=== PATIENT | female | born 1955 | race Caucasian/White ===

== ENCOUNTER 2018-01-16 00:07 | Inpatient (IN) | payer BC ==
--- NOTE | 2018-01-15 12:11 | HISTORY AND PHYSICAL ---
DATE OF ADMISSION: January 16, 2018 IDENTIFICATION, CHIEF COMPLAINT Jovanna is a 61-year-old woman with a chief complaint of left hip pain. HISTORY OF PRESENT ILLNESS Patient has a longstanding history of hip arthritis, progressively painful and debilitating, refractory to conservative care. Surgery is indicated to relieve symptoms after failure of nonoperative measures. PAST MEDICAL HISTORY Notable for history of heart disease status post MD, hypertension, migraine headaches, type 2 diabetes controlled with diet, acid reflux disease, neck and back arthritis, history of uterine cancer. PAST SURGICAL HISTORY Notable for stomach bypass, cholecystectomy, hysterectomy, treatment of bladder prolapse. FAMILY HISTORY Notable for mother with heart disease. SOCIAL HISTORY Notable for a 20 pack/year history, however, she no longer smokes. She denies alcohol use or abuse. ALLERGIES TAPE, which causes blisters. CURRENT MEDICATIONS 1. Mobic 15 mg per day. 2. Lisinopril 20 mg p.o. q.day. 3. Hydrocodone for pain. 4. Various vitamins. PHYSICAL EXAMINATION GENERAL: This is a healthy female. HEENT: She is normocephalic, atraumatic. NECK: Supple. LUNGS: Clear. HEART: Regular. ABDOMEN: Soft. ORTHOPEDIC EXAM: Hip is very painful at limits of rotation. She is stiff and has lost combined flexion and internal rotation. Hip girdle strength is normal. Skin envelope is intact. Calves nontender. Neurovascular function is intact. RADIOGRAPHIC DATA Radiographs demonstrate end-stage hip arthritis. ASSESSMENT Left hip degenerative joint disease, refractory to conservative care. PLAN Per patient request, we are going to proceed with hip replacement. Nature of the procedure, risks, benefits, the anticipated rehabilitative course were reviewed. Risks of the procedure include, but are not limited to, , major medical or anesthetic complication, infection, neurovascular injury, blood transfusion, stiffness, scarring, fracture, tendon rupture, instability, leg length discrepancy, implant loosening, migration or failure, persistent or recurrent pain, need for additional surgery, and other unforeseen. She understands and wishes to proceed. Signed permit was placed in the chart, no guarantees are given or implied. JANELLE
[2018-01-16] VITALS (12 sets, daily range): BP systolic 99–145; BP diastolic 58–82
[~2018-01-16] VITALS: Ht 154.9 cm; Wt 93.0 kg
[~2018-01-16 00:07] MED LIST: HYDR-393 PO; LISI20TA29 PO; MELO-207 PO; TRAM-420 PO
[2018-01-16] MEDS ORDERED: PROPOFOL EMUL(*) 10MG/ML 20 ML 20 ML ONE (07:49)
[2018-01-16] MEDS ORDERED: DEXAMETHASONE SOD PHOS 10MG/ML ONE (07:49)
[2018-01-16] MEDS ORDERED: LIDOCAINE MPF 1% 5 ML VIAL ONE (07:49)
[2018-01-16] MEDS ORDERED: ONDANSETRON 4 MG/2 ML VIAL ONE (07:49)
[2018-01-16] MEDS ORDERED: fentaNYL CITR 100 MCG/2 ML AMP ONE ×3 (07:51→12:39)
[2018-01-16] MEDS ORDERED: KETAMINE HCL 200 MG/20 ML MDV ONE (07:52)
[2018-01-16] MEDS ORDERED: NS 0.9% 20 ML SDV 20 ML ONE (08:10)
[2018-01-16] MEDS ORDERED: CELECOXIB 200 MG CAP PO ONE (08:50)
[2018-01-16] MEDS ORDERED: ACETAMINOPHEN 500 MG TAB PO ONE (08:50)
[2018-01-16] MEDS ORDERED: cloNIDine EPIDUR INJ 100MCG/ML 40 MCG, ROPIVACAINE 0.5% 20 ML VIAL 25 ML, EPINEPHrine H... INJ ONE (08:50)
[2018-01-16] MEDS ORDERED: FAMOTIDINE 20 MG TAB PO ONE (08:50)
[2018-01-16] MEDS ORDERED: PREGABALIN 150 MG CAPSULE PO ONE (08:50)
[2018-01-16] MEDS ORDERED: LIDOCAINE/SOD BICARB 8.4% SYR ID ONE (08:50)
[2018-01-16] MEDS ORDERED: NORMOSOL R SOLN(*) 1000 ML BAG 1,000 ML IV PRN ×2 (08:50→13:00)
[2018-01-16] MEDS ORDERED: MIDAZOLAM 2 MG/2 ML VIAL IVP PRN (08:50)
[2018-01-16] MEDS ORDERED: TRANEXAMIC AC 1000 MG/10ML SDV 1,000 MG in DEXTROSE 5% 50 ML BAG 50 ML IV ONE (08:50)
[2018-01-16] MEDS: ceFAZolin(*) 2GM/D5W 50ML 50 ML IVPB ONE ×2 (09:52→10:15)
[2018-01-16] MEDS ORDERED: ROCURONIUM BROM 10 MG/ML 10 ML ONE (10:15)
[2018-01-16] MEDS ORDERED: SUGAMMADEX SOD 200 MG/2 ML SDV ONE (11:18)
[2018-01-16] MEDS ORDERED: VANCOMYCIN 1 GM VIAL ONE (11:36)
[2018-01-16] MEDS ORDERED: BISACODYL 10 MG SUPP PR PRN (13:00)
[2018-01-16] MEDS ORDERED: diphenhydrAMINE 50 MG/ML VIAL IVP PRN (13:00)
[2018-01-16] MEDS ORDERED: BENZOCAINE/MENTHOL 1 EACH LOZG PO PRN (13:00)
[2018-01-16] MEDS ORDERED: ACETAMINOPHEN 325 MG TAB PO PRN (13:00)
[2018-01-16] MEDS ORDERED: ZOLPIDEM TARTRATE 5 MG TAB PO PRN (13:00)
[2018-01-16] MEDS ORDERED: MAGNESIUM HYDROXIDE* 30ML UDCP PO PRN (13:00)
[2018-01-16] MEDS ORDERED: diphenhydrAMINE 25 MG CAP PO PRN (13:00)
[2018-01-16] MEDS ORDERED: FLUSH 10 ML SYR IVP PRN (13:00)
[2018-01-16] MEDS ORDERED: PROMETHAZINE 25 MG/ML 1 ML AMP IVP PRN (13:00)
--- NOTE | 2018-01-16 13:19 | RADIOLOGY IMAGING REPORT ---
FACILITY: [facility] PATIENT NAME: Jovanna Braxton : 1955 MR: [id number] V: [id number] EXAM DATE: ORDERING PHYSICIAN: BRAYDON WALKER TECHNOLOGIST: Location: [facility] Patient: Jovanna Braxton : 1955 Visit/Account:[id number] Date of Sevice: 01/16/2018 PELVIS History: Postop left total hip replacement. Comparison study: None. Findings: There is diffuse osteopenia but no fracture. There has been recent placement of left total hip prosthesis. Subcutaneous air is noted on the left side. There are findings of osteoarthrosis involving the right hip. There are degenerative changes involve the sacroiliac joints. IMPRESSION: 1. Status post recent left total hip replacement. 2. Osteopenia without fracture. Report Dictated By: Juan Willis MD at 01/16/2018 1:14 PM Report E-Signed By: Juan Willis MD at 01/16/2018 1:15 PM WSN:[email or web address]
--- NOTE | 2018-01-16 15:31 | Hospitalist Consultation ---
History of Present Illness Requesting Physician Dr. Littlejohn Reason for Consult Hypertension Chief Complaint s/p left total hip replacement History of Present Illness She was admitted s/p left total hip replacement. It is reported the surgery went well and without complication. History Problems: (1) Hypertension Status: Chronic Home Meds Reported Medications Tramadol Hcl (TRAMADOL HCL) 50 Mg Tablet, 50 MG PO TID Y for PAIN, TAB 01/10/18 Acetaminophen/Hydrocodone (HYDROCODON-ACETAMINOPHN 10-325) 1 Each Tab, 1 EACH PO QID, TAB 01/10/18 Lisinopril (LISINOPRIL) 20 Mg Tablet, 20 MG PO QDAY, TAB 01/10/18 Meloxicam (MELOXICAM) 15 Mg Tablet, 15 MG PO QDAY 01/10/18 Allergies: Coded Allergies: adhesive tape (Verified Allergy, Intermediate, CAUSES BLISTERS ON SKIN, 05/20) Patient History: FH: [place] (myocardial infarction) FATHER, FH: heart disease FATHER, Renal cancer MOTHER, Hx Smoking: Yes (2 PPD X 9 YRS QUIT 40 YRS AGO) Smoking Status: Former Smoker Caffeine Intake: Soda Caffeine/Cups Per Day: 1 GLASS DAILY Hx Alcohol Use: No Hx Substance Use Disorder: No Social Drug Use: Never History of IV Drug Use: No Review of Systems All Systems Reviewed/Normal: Yes, Except as Noted Exam Vital Signs Vital Signs Date Time Temp Pulse Resp B/P (MAP) Pulse Ox O2 Delivery O2 Flow Rate FiO2 01/16/18 14:45 78 125/74 (91) 100 Nasal Cannula 1.0 01/16/18 14:30 98.3 16 General Appearance: No Acute Distress Cardiovascular: Regular Rate and Rhythm Respiratory: No Respiratory Distress, Clear to Auscultation Extremities: Perfused Psych: Other (sleeping throughout exam ) Assessment and Plan Problems: (1) Status post total hip replacement, left Status: Acute Assessment & Plan: Followed by Dr. Littlejohn. She will be placed on Aspirin 325 mg daily for DVT prophylaxis. (2) Hypertension Status: Chronic Assessment & Plan: She is on chronic treatment with Lisinopril. This has been restarted with hold parameters. Venous Thromboembolism Antithrombotics Is Pt On Any Antithrombotics?: No Exam Sepsis Risk: No Definite Risk BALDEV CHANDRA BIG 6 DEALER Jan 16, 2018 15:31
[2018-01-16] MEDS: CELECOXIB 200 MG CAP PO SCH (17:29)
[2018-01-16] MEDS: APAP/HYDROCODONE 325/7.5 TAB PO PRN ×2 (17:29→23:45)
[2018-01-16] MEDS: ceFAZolin(*) 1 GM VIAL 1 GM in NS(*) 0.9% 100 ML ADDVANT BAG 100 ML IVPB SCH (17:31)
--- NOTE | 2018-01-16 21:04 | OPERATIVE REPORT 1 ---
EVENT DATE: January 16, 2018 SURGEON: Matt Littlejohn MD ANESTHESIOLOGIST: He Baca MD ANESTHESIA: General plus spinal. SENIOR SERVICE AIDE: LUIS Sousa PREOPERATIVE DIAGNOSIS Left hip degenerative joint disease. POSTOPERATIVE DIAGNOSIS Left hip degenerative joint disease. PROCEDURE PERFORMED Left total hip arthroplasty. ESTIMATED BLOOD LOSS 300 mL DRAINS None. SPECIMENS None. COMPLICATIONS None apparent. IMPLANTS USED [place] system with a 56 Tritanium shell, complimented by Torx 6.5 cancellous bone screws times two and a Trident X3 zero-degree poly insert to accommodate a 36 mm head, SecurFit Max 132-degree neck angled hip stem size 10, and a Biolox Ceramic C-Taper femoral head 36, +7.5. INDICATIONS Jovanna is a 62-year-old woman with intractable pain and disability related to end-stage hip arthritis. Surgery is indicated to relieve symptoms after failure of nonoperative measures. DESCRIPTION OF PROCEDURE Patient was taken to the operating room and placed supine on the operating table. General anesthesia is induced. Spinal block is placed by the anesthesiologist. Patient is positioned in the right lateral decubitus on a well-padded pegboard. Pelvis is secured in a vertical position. All bony prominences and superficial nerves are well padded. Left hip girdle and lower extremity are prepped and draped in the usual sterile fashion for hip arthroplasty. A posterolateral approach made, carried down through the skin and fat to the deep fascia. Fascia is incised over the tip of the trochanter, extended distally in line with the femur, proximally in line with the srinivas fibers. Srinivas fibers are split bluntly. The interval between the abductor and external rotator is identified, and the abductor is protected with a blunt Hohmann. External rotators and the capsule are released posterolaterally with an L capsulotomy/tenotomy. These are tagged with #2 Vicryl for later anatomic reattachment. The femoral head is dislocated. End-stage arthritic change is noted. A 1.5 cm neck cut is made consistent with preoperative templating. Femoral head is extracted. Femur is translocated anteriorly. The socket is blown out, and it is fairly dilated and sclerotic. It carried down very close to the true medial wall of the acetabulum. This is carefully expanded from 44 in 2 mm increments up until reasonable contact is obtained at 56 with all rims. The wound is lavaged, and trial 56 has satisfactory fit. This impacted into position due to the dilated nature of the socket, although there is adequate contact. There is slight retroversion of the thin posterior wall; therefore, two Torx 6.5 screws were placed in the posterosuperior quadrant to engage nice bone in the posterior column. Solid fixation is achieved. Socket is lavaged, and the actual liner is impacted into the socket. Attention is turned to femoral preparation. The superior neck is resected with a cookie cutter. A Ben awl finds the canal. Tapered reaming is performed up to 10 where good endosteal contact is obtained. Broaching starts with 8 and works up to 10. The 10 broach has nice fit and fill, and good voodoo of soft tissue tension and stability are achievable off this stable broach. The broach is extracted. The actual stem is seated and seats at the same height. The +7.5 provides optimal for voodoo of the limb length, stability, and soft tissue tension. Claudio taper is lavaged and dried, and the head is impacted into position. Joint is reduced. Arthrotomy/tenotomy is closed through drill holes with a #2 Vicryl suture. The deep fascia is closed distally with #2 Ethibond, proximally with #2 Vicryl. Subcutaneous tissue is lavaged. Hemostasis is assured. Derm is closed with 3-0 Vicryl, skin with surgical digna, Xeroform and 4 x 4's in a dry, sterile dressing, and a hip wrap. Patient is rolled supine. Abduction pillow is placed. She is awakened from anesthesia and taken to the recovery room in stable condition having tolerated the procedure well. PLAN Plan is for standard [facility] rehab protocol, weightbearing as tolerated, and posterior hip precautions. [facility]
[2018-01-17] MEDS: ceFAZolin(*) 1 GM VIAL 1 GM in NS(*) 0.9% 100 ML ADDVANT BAG 100 ML IVPB SCH ×2 (01:32→09:30)
[2018-01-17 04:14] VITALS: BP 117/56
[2018-01-17] MEDS: DIAZEPAM 5 MG TAB PO PRN (04:22)
[2018-01-17] MEDS: APAP/HYDROCODONE 325/7.5 TAB PO PRN ×3 (07:17→18:04)
[2018-01-17] MEDS: CELECOXIB 200 MG CAP PO SCH ×2 (07:17→18:03)
[2018-01-17 07:27] VITALS: BP 110/52
[2018-01-17] MEDS: LISINOPRIL 20 MG TAB PO SCH ×3 (08:25→09:00)
[2018-01-17] MEDS ORDERED: ASPIRIN 325 MG TAB PO SCH (09:00)
--- NOTE | 2018-01-17 11:31 | Hospitalist Progress Note ---
Subjective Progress Notes Subjective She was admitted s/p hip replacement. She had no acute events overnight. Patient Complains of: Cardiovascular: No: Chest Pain Respiratory: No: Shortness of Breath Physical Exam Vital Signs Date Time Temp Pulse Resp B/P (MAP) Pulse Ox O2 Delivery O2 Flow Rate FiO2 01/17/18 07:31 96 Room Air 01/17/18 07:27 98.4 82 14 110/52 (71) 01/17/18 04:14 1.0 Intake and Output 01/18/18 01:00 Intake Total 1160 ml Balance 1160 ml Intake Oral 960 ml IV Total 200 ml # Voids 1 General Appearance: Alert, Awake, No Acute Distress, Afebrile Neuro: No Gross deficits Cardiovascular: Regular Rate and Rhythm Respiratory: No Respiratory Distress, Clear to Auscultation Psych: Alert & Oriented X3, Appropriate Mood & Affect Assessment and Plan Problems: (1) Status post total hip replacement, left Status: Acute Assessment & Plan: Followed by Dr. Littlejohn. She will be placed on Aspirin 325 mg daily for DVT prophylaxis. (2) Hypertension Status: Chronic Assessment & Plan: She is on chronic treatment with Lisinopril. This has been restarted with hold parameters. Exam Sepsis Risk: No Definite Risk BALDEV CHANDRA BUFFING MACHINE TENDER Jan 17, 2018 11:31
[2018-01-17 13:01] VITALS: Ht 154.9 cm; Wt 93.0 kg
[2018-01-17 20:34] VITALS: BP 104/58
[2018-01-17 23:47] VITALS: BP 114/62
[2018-01-18] MEDS: APAP/HYDROCODONE 325/7.5 TAB PO PRN ×4 (00:56→19:49)
[2018-01-18 05:09] VITALS: BP 118/74
[2018-01-18 08:30] VITALS: BP 111/65
[2018-01-18] MEDS: LISINOPRIL 20 MG TAB PO SCH (08:34)
[2018-01-18] MEDS: CELECOXIB 200 MG CAP PO SCH ×2 (08:34→17:40)
[2018-01-18] MEDS ORDERED: CALCIUM CARBONATE 500 MG CHEW PO PRN (09:05)
[2018-01-18] MEDS: ASPIRIN 81 MG CHEW PO SCH (09:19)
--- NOTE | 2018-01-18 11:26 | Hospitalist Progress Note ---
Subjective Progress Notes Subjective She has no concerns this morning. She had no acute events overnight. Patient Complains of: Cardiovascular: No: Chest Pain Respiratory: No: Shortness of Breath Physical Exam Vital Signs Date Time Temp Pulse Resp B/P (MAP) Pulse Ox O2 Delivery O2 Flow Rate FiO2 01/18/18 05:12 93 01/18/18 05:09 97.9 79 15 118/74 (89) Room Air 01/17/18 04:14 1.0 Intake and Output 01/19/18 00:59 Intake Total 240 ml Balance 240 ml Intake Oral 240 ml # Voids 1 General Appearance: Alert, Awake, No Acute Distress Neuro: No Gross deficits Cardiovascular: Regular Rate and Rhythm Respiratory: No Respiratory Distress, Clear to Auscultation Psych: Alert & Oriented X3, Appropriate Mood & Affect Assessment and Plan Problems: (1) Status post total hip replacement, left Status: Acute Assessment & Plan: Followed by Dr. Littlejohn. She will be placed on Aspirin 325 mg daily for DVT prophylaxis. (2) Hypertension Status: Chronic Assessment & Plan: She is on chronic treatment with Lisinopril. This has been restarted with hold parameters. Exam Sepsis Risk: No Definite Risk BALDEV CHANDRA MUSIC ARTIST Jan 18, 2018 11:26
[2018-01-18 12:22] VITALS: BP 113/60
[2018-01-18 14:52] VITALS: BP 120/60
[2018-01-18 19:39] VITALS: BP 111/58
[2018-01-18 23:21] VITALS: BP 111/60
[2018-01-19] MEDS: DIAZEPAM 5 MG TAB PO PRN (01:11)
[2018-01-19] MEDS: APAP/HYDROCODONE 325/7.5 TAB PO PRN ×3 (02:38→12:51)
[2018-01-19 02:58] VITALS: BP 123/68
[2018-01-19] MEDS: CELECOXIB 200 MG CAP PO SCH (07:37)
[2018-01-19 07:39] VITALS: BP 126/57
[2018-01-19] MEDS ORDERED: DIA5 PO (08:33)
[2018-01-19] MEDS ORDERED: CELE-1 PO (08:34)
[2018-01-19] MEDS ORDERED: HYDR-4308 PO (08:35)
[2018-01-19] MEDS: LISINOPRIL 20 MG TAB PO SCH (08:48)
[2018-01-19] MEDS: ASPIRIN 81 MG CHEW PO SCH (08:48)
[2018-01-19] MEDS ORDERED: ASPI-870 PO (09:01)
--- NOTE | 2018-01-19 10:40 | Hospitalist Progress Note ---
Subjective Progress Notes Subjective She was admitted s/p hip replacement. She had no acute events overnight. She would like to go home today. Patient Complains of: Cardiovascular: No: Chest Pain Respiratory: No: Shortness of Breath Physical Exam Vital Signs Date Time Temp Pulse Resp B/P (MAP) Pulse Ox O2 Delivery O2 Flow Rate FiO2 01/19/18 10:30 Room Air 01/19/18 07:39 93 01/19/18 07:39 98.3 82 20 126/57 (80) Intake and Output 01/20/18 00:59 Intake Total 0 ml Balance 0 ml Intake Oral 0 ml # Voids 1 General Appearance: Alert, Awake, No Acute Distress Neuro: No Gross deficits Cardiovascular: Regular Rate and Rhythm Respiratory: No Respiratory Distress, Clear to Auscultation GI: Soft and Non-Tender Psych: Alert & Oriented X3, Appropriate Mood & Affect Assessment and Plan Problems: (1) Status post total hip replacement, left Status: Acute Assessment & Plan: Followed by Dr. Littlejohn. She was placed on Aspirin 162 mg daily for DVT prophylaxis secondary to gastric bypass. (2) Hypertension Status: Chronic Assessment & Plan: She is on chronic treatment with Lisinopril. Exam Sepsis Risk: No Definite Risk BALDEV CHANDRA COUNTER CLERK TRACTOR PARTS Jan 19, 2018 10:40
== END 2018-01-19 13:05 | disposition home or self-care (01) | DRG 470 ==
LOC: OR 00:07 → MED 14:20
PROVIDERS: ADMIT Orthopaedic Surgery; ATTEND Orthopaedic Surgery
PROC: 0SRB04A Replacement of Left Hip Joint with Ceramic on Polyethylene Synthetic Substitute, Uncemented, Open Approach (ICD-10-PCS; principal; 2018-01-16 09:50)
DX: M16.12 Unilateral primary osteoarthritis, left hip (principal); I10 Essential (primary) hypertension; E11.9 Type 2 diabetes mellitus without complications; E66.01 Morbid (severe) obesity due to excess calories; K21.9 Gastro-esophageal reflux disease without esophagitis; Z85.42 Personal history of malignant neoplasm of other parts of uterus; I25.2 Old myocardial infarction; Z98.84 Bariatric surgery status; Z90.49 Acquired absence of other specified parts of digestive tract; Z90.710 Acquired absence of both cervix and uterus; Z87.891 Personal history of nicotine dependence; Z68.38 Body mass index [BMI] 38.0-38.9, adult
CPT/HCPCS: 36415; 72170; 85610; 86850; 86900; 86901; 97161; 97165; C1713; C1776; J0171; J0690; J0735; J1100; J1885; J2001; J2250; J2405; J2704; J2795; J3010; J3370; J3490; J7050; J7060; Q0163

== ENCOUNTER 2018-11-20 00:21 | Inpatient (IN) | payer BC ==
[2018-01-17 13:01] VITALS: Ht 154.9 cm; Wt 93.9 kg
[2018-11-19 14:22] LABS: INR 1.01
[2018-11-20] VITALS (14 sets, daily range): BP systolic 64–145; BP diastolic 40–80
[~2018-11-20] VITALS: Ht 154.9 cm; Wt 93.9 kg
[~2018-11-20 00:21] MED LIST changes: +ASPI-870 PO; +CELE-1 PO; +DIA5 PO; +HYDR-654 PO
--- NOTE | 2018-11-20 05:32 | LEVENE H&P ---
DATE OF ADMISSION: November 20, 2018 IDENTIFICATION/CHIEF COMPLAINT Jovanna is a 63-year-old woman with a chief complaint of right knee pain. HISTORY OF PRESENT ILLNESS Patient has a longstanding history of disabling right knee pain, progressively painful and refractory to conservative care. Surgery is indicated to relieve symptoms after failure of nonoperative measures. PAST MEDICAL HISTORY Notable for history of [place], hypertension. PAST SURGICAL HISTORY Notable for hip replacement, cholecystectomy, bladder surgery, uterus surgery. FAMILY HISTORY Notable for mother with cancer, father with heart disease. SOCIAL HISTORY Negative for tobacco and alcohol use. REVIEW OF SYSTEMS Notable for borderline diet-controlled diabetes and neck and back problems. ALLERGIES She has no known drug allergies. She is allergic to POLLEN. CURRENT MEDICATIONS 1. Meloxicam 50 mg p.o. daily. 2. Lisinopril 20 mg p.o. daily. PHYSICAL EXAMINATION GENERAL: This is a healthy female. HEENT: Normocephalic, atraumatic. NECK: Supple. LUNGS: Clear. HEART: Regular rate and rhythm. ABDOMEN: Soft. ORTHOPEDIC: The right knee has varus deformity. She is very stiff at end range of motion. Effusion is present. Gross stability is good. Extensor function is intact. Radiographs demonstrate end-stage right knee DJD with significant bone erosion medially. ASSESSMENT Right knee end-stage degenerative joint disease, progressively painful and debilitating, refractory to conservative care. PLAN Per patient request, going to proceed with total knee arthroplasty. Nature of the procedure, risks, benefits, and the anticipated rehab course were outlined. Risks include but are not limited to , major medical or anesthetic complications, infection, neurovascular injury, blood transfusion, stiffness, scarring, fracture, tendon rupture, instability, implant loosening, migration, or failure, persistent or recurrent pain, need for additional surgery, and other unforeseen. She understands and wishes to proceed. Signed permit is placed in the chart. No guarantees are given or implied. JANELLE
[2018-11-20] MEDS ORDERED: VANCOMYCIN 1 GM VIAL ONE (06:58)
[2018-11-20] MEDS ORDERED: FAMOTIDINE 20 MG TAB PO ONE (10:00)
[2018-11-20] MEDS ORDERED: ceFAZolin(*) 2GM/D5W 50ML 50 ML IVPB ONE (10:00)
[2018-11-20] MEDS ORDERED: LIDOCAINE/SOD BICARB 8.4% SYR ID ONE (10:00)
[2018-11-20] MEDS ORDERED: PREGABALIN 150 MG CAPSULE PO ONE (10:00)
[2018-11-20] MEDS ORDERED: CELECOXIB 200 MG CAP PO ONE (10:00)
[2018-11-20] MEDS ORDERED: ACETAMINOPHEN 500 MG TAB PO ONE (10:00)
[2018-11-20] MEDS ORDERED: NORMOSOL R SOLN(*) 1000 ML BAG 1,000 ML IV PRN ×2 (10:00→14:55)
[2018-11-20] MEDS ORDERED: MIDAZOLAM 2 MG/2 ML VIAL IVP PRN (10:00)
[2018-11-20] MEDS ORDERED: ROPIVACAINE/EPI/CLONIDINE/KET 50 ML SYRINGE INJ ONE (10:00)
[2018-11-20] MEDS ORDERED: TRANEXAMIC AC 1000 MG/10ML SDV 1,000 MG in DEXTROSE 5% 50 ML BAG 50 ML IV ONE (10:00)
[2018-11-20] MEDS ORDERED: fentaNYL CITR 100 MCG/2 ML AMP ONE ×2 (10:28→13:18)
[2018-11-20] MEDS ORDERED: LIDOCAINE 2% IV 100 MG/5ML SYR ONE (10:29)
[2018-11-20] MEDS ORDERED: PROPOFOL EMUL(*) 10MG/ML 20 ML 20 ML ONE (10:29)
[2018-11-20] MEDS ORDERED: KETAMINE HCL 200 MG/20 ML MDV ONE ×2 (12:22→13:19)
[2018-11-20] MEDS ORDERED: DEXAMETHASONE SOD PHOS 10MG/ML ONE (12:31)
[2018-11-20] MEDS ORDERED: ONDANSETRON 4 MG/2 ML VIAL ONE (12:32)
[2018-11-20] MEDS ORDERED: NS 0.9% 3000 ML IRRIGATION BAG IR ONE (13:07)
[2018-11-20] MEDS ORDERED: WATER STERILE FOR IRRIG 1000ML IR ONE (13:08)
[2018-11-20] MEDS ORDERED: NS 0.9% IRRIGATION 1000ML PLCT IR ONE (13:08)
[2018-11-20] MEDS ORDERED: MAGNESIUM HYDROXIDE* 30ML UDCP PO PRN (14:55)
[2018-11-20] MEDS ORDERED: PROMETHAZINE 25 MG/ML 1 ML AMP IVP PRN (14:55)
[2018-11-20] MEDS ORDERED: BISACODYL 10 MG SUPP PR PRN (14:55)
[2018-11-20] MEDS ORDERED: diphenhydrAMINE 50 MG/ML VIAL IVP PRN (14:55)
[2018-11-20] MEDS ORDERED: ACETAMINOPHEN 325 MG TAB PO PRN (14:55)
[2018-11-20] MEDS ORDERED: BENZOCAINE/MENTHOL 1 EACH LOZG PO PRN (14:55)
[2018-11-20] MEDS ORDERED: ZOLPIDEM TARTRATE 5 MG TAB PO PRN (14:55)
[2018-11-20] MEDS ORDERED: FLUSH 10 ML SYR IVP PRN (14:55)
[2018-11-20] MEDS ORDERED: diphenhydrAMINE 25 MG CAP PO PRN (14:55)
--- NOTE | 2018-11-20 14:58 | RADIOLOGY IMAGING REPORT ---
FAC[place] [facility] [place]IENT NAME: Jovanna Braxton : 1955 MR: [id number] V: [id number] EXAM DATE: ORDERING PHYSICIAN: BRAYDON WALKER TECHNOLOGIST: Location: [facility] [place] Patient: Jovanna Braxton : 1955 Visit/Account:[id number] Date of Sevice: 11/20/2018 Right knee Indication: Postop Comparison: None available Findings: 2 views right knee were obtained. Anatomic alignment status post right total knee arthroplasty with expected soft tissue changes. IMPRESSION: 1. Anatomic alignment status post right total knee arthroplasty. Report Dictated By: Morgan Romero MD at 11/20/2018 2:54 PM Report E-Signed By: Morgan Romero MD at 11/20/2018 2:54 PM WSN:[email or web address]
[2018-11-20] MEDS ORDERED: HYDR-393 PO (16:28)
--- NOTE | 2018-11-20 16:46 | Hospitalist Consultation ---
History of Present Illness Requesting Physician Dr. Littlejohn Reason for Consult Medical Management Chief Complaint s/p right knee replacement History of Present Illness She was admitted s/p right knee replacement. It is reported the surgery went well and without complication. History Problems: (1) Hypertension Status: Chronic Home Meds Reported Medications Acetaminophen/Hydrocodone (HYDROCODON-ACETAMINOPHN 10-325) 1 Each Tab, 1 EACH PO Q4H PRN for PAIN, TAB 11/20/18 Meloxicam (MELOXICAM) 15 Mg Tablet, 15 MG PO QDAY 11/15/18 Lisinopril (LISINOPRIL) 20 Mg Tablet, 20 MG PO QDAY, TAB 01/10/18 Discontinued Reported Medications Hydrocodone Bit/Acetaminophen (NORCO 7.5-325 TABLET) 1 Each Tablet, 1-2 EACH PO Q4-6H PRN for PAIN, #50 01/19/18 Celecoxib (CELEBREX) 200 Mg Capsule, 200 MG PO BIDBS, CAPSULE Take with food 01/19/18 Diazepam (VALIUM) 5 Mg Tablet, 5 MG PO Q6H PRN for SPASMS, #20 TAB 01/19/18 Discontinued Scripts Aspirin (Children's Aspirin) 81 Mg Tab.chew, 162 MG PO DAILY, #60 TAB.CHEW Prov:CHANDRABALDEV COATING MACHINE FEEDER 01/19/18 Allergies: Coded Allergies: adhesive tape (Verified Allergy, Intermediate, CAUSES BLISTERS ON SKIN, 01/10/18) Uncoded Allergies: POLLEN (Allergy, Intermediate, ITCHY EYES, STUFFY NOSE, 11/15/18) Patient History: FH: [place] (myocardial infarction) FATHER, FH: heart disease FATHER, Renal cancer MOTHER, Hx Smoking: Yes (2 PPD X 9 YRS QUIT 40 YRS AGO) Smoking Status: Former Smoker Caffeine Intake: Soda Caffeine/Cups Per Day: 1 GLASS RARELY Hx Alcohol Use: No Hx Substance Use Disorder: No Social Drug Use: Never Review of Systems All Systems Reviewed/Normal: Yes, Except as Noted Musculoskeletal: Pain (right knee) Exam Vital Signs Vital Signs Date Time Temp Pulse Resp B/P (MAP) Pulse Ox O2 Delivery O2 Flow Rate FiO2 11/20/18 16:15 76 24 99 11/20/18 16:15 98.2 117/65 (82) Nasal Cannula 2.0 General Appearance: Alert, Awake, No Acute Distress, Afebrile Neuro: No Gross deficits Assessment and Plan Problems: (1) Status post right knee replacement Status: Acute Assessment & Plan: She will be placed on Aspirin for DVT prophylaxis. (2) Hypertension Status: Chronic Assessment & Plan: Continue chronic Lisinopril with hold parameters. Venous Thromboembolism Antithrombotics Is Pt On Any Antithrombotics?: No Problem Qualifiers (1) Hypertension: Hypertension type: essential hypertension Qualified Codes: I10 - Essential (primary) hypertension BALDEV CHANDRAP November 20, 2018 16:46
[2018-11-20] MEDS: CELECOXIB 200 MG CAP PO SCH (17:34)
[2018-11-20] MEDS: APAP/HYDROCODONE 325/7.5 TAB PO PRN ×3 (17:39→23:22)
--- NOTE | 2018-11-20 19:00 | NUR ---
Physical Therapy Impression PT eval completed; pt limited by pain, but did tolerate side step at EOB. Physical Therapy Goals 1. Pt to be Min/CGA for bed mobility and supine to/from sit trnsfrs 2. Pt to be CGA/SBA for sit to/from stand transfers 3. Pt to ambulate 100' with least restrictive device and safe pattern 4. Pt to complete up/down platform step x 1 with rail and/or least restrictive device. Patient's Goals
[2018-11-20] MEDS: ceFAZolin(*) 1 GM VIAL 1 GM in NS(*) 0.9% 100 ML ADDVANT BAG 100 ML IVPB SCH (20:32)
--- NOTE | 2018-11-20 22:39 | OPERATIVE REPORT 1 ---
EVENT DATE: November 20, 2018 SURGEON: Matt Littlejohn MD ANESTHESIOLOGIST: Yang Méndez MD ANESTHESIA: General plus spinal. MDS MANAGER: Lex Tobar PA-C PREOPERATIVE DIAGNOSIS Right knee degenerative joint disease. POSTOPERATIVE DIAGNOSIS Right knee degenerative joint disease. PROCEDURE PERFORMED Right total knee arthroplasty. ESTIMATED BLOOD LOSS Minimal. DRAINS None. SPECIMENS None. COMPLICATIONS None apparent. TOURNIQUET TIME 70 minutes. IMPLANTS USED [employer] Triathlon knee system with a 5 universal baseplate with a 50 mm distal length, 12 mm diameter cemented stem, a 4 PS femur, a 19 mm PS tibial tray liner, and a 36 mm universal cemented all polyethylene patellar button. INDICATIONS Jovanna is a 63-year-old woman with intractable pain, disability, severe deformity, and bone loss related to end-stage knee arthritis and varus deformity. Surgery is indicated to relieve pain and improve function after failure of nonoperative measures. DESCRIPTION OF PROCEDURE Patient is taken to the operating room and placed supine on the operating table. Spinal nerve block is placed by the anesthesiologist. General anesthesia is induced. Antibiotics are administered IV. Right lower extremity is prepped and draped in the usual sterile fashion for knee arthroplasty. A midline incision is made and carried down through the skin and subcutaneous tissue to the extensor mechanism. Full-thickness flaps are developed far enough to allow medial parapatellar arthrotomy be performed. Patella is everted. Knee is brought into flexed position. Fat pad, anterior horns of the menisci, and the cruciate ligaments are debrided. Subperiosteal medial release is started in a titrated fashion to start to balance the deformity in the knee. A step drill is used to enter the distal femur. A 10-inch long alignment guide is used to engage the isthmus. Cut is set for 6 degrees of valgus relative to the anatomic axis. A 10 mm resection block is applied and pinned. Distal femoral cut is made with an oscillating saw. AP sizing guide is applied to this cut and positioned for 3 degrees of external rotation relative to the posterior condyles. Size 4 is optimal without risk of notching. A four-in-one cutting block is applied. Anterior, posterior, posterior chamfer, and anterior chamfer cuts are made respectively. PS block is applied and centered. Medial and lateral bone is removed through the box. Trial femur has nice fit. Attention is turned to tibial preparation. There is a severe posteromedial defect in the tibia. There is also complete erosion of the cartilage medially and laterally. An estimate is made for a conservative cut on the tibia based off the amount of resection on the plateau. The block is positioned for appropriate varus, valgus, posterior slope, and depth, and then the block is pinned. A provisional cut is made with an oscillating saw. At this point, this allows the access to the posterior recess where copious bone spurs, loose debris, and meniscal remnants are removed posteriorly. Additional medial release is performed around the medial side, and all osteophytes were resected until there is adequate soft tissue balance. The cut is dropped down a couple more millimeters to assure that there will be a minimal defect. Our goal is to have at least 85% to 90% coverage with the baseplate without dropping too far down in the tibia, therefore can be relatively bone sparing, avoid augments and excessive length stems. The cut is dropped down a couple more millimeters on the tibia. At this point, this objective is met, leaving a small posteromedial defect comprising roughly 10% to 15% of the surface, but providing a good surface for stability of the baseplate. The 5 baseplate provides optimal coverage, and it is inserted along with a trial liner. Balance and stability are assessed. The flexion contracture has been alleviated. Patella is taken from a starting thickness of 22 to a residual of 14 with a patellar clamp and oscillating saw. The 36 provides optimal bony coverage without soft tissue overhang. Lug holes are drilled. Patella tracks nicely with the no-touch technique. Next, the baseplate is positioned on the tibia for appropriate translational and rotational alignment. The boss is reamed, and the fin is punched to accommodate a slightly longer stem due to the need for maximum stability. The reaming is taken out far enough to allow a 12 mm diameter, 50 mm stem to be press-fit into position. The trial is introduced, and this seats down nicely with a good firm fixation distally. Although this is intended to be a cemented stem, I will not cement all the way to the tip of the stem to avoid extracting excessive bone if she ever needs revision. The sclerotic surfaces are perforated with small drill bits to facilitate cement interdigitation. Wound is copiously lavaged. A mix of methacrylate is made, and components are cemented in a single stage. Once the cement is fully polymerized, tourniquet is deflated. Hemostasis is assured. Various liners are tried. The 19 fills up the gap ideally, allowing the knee to drop to full extension without hyperextension, providing optimal soft tissue tension and stability. The surfaces are lavaged. The liner is locked into the baseplate. Joint is reduced. Arthrotomy is closed with in flexion with #2 Ethibond, subcutaneous tissue with 3-0 Vicryl, and skin with a ZipLine closure. Xeroform is applied for a dry, sterile dressing and compression wrap. Patient is awakened from anesthesia and taken to the recovery room in stable condition having tolerated the procedure well. PLAN Standard TKA rehab protocol without modification. [facility]
[2018-11-21] VITALS (7 sets, daily range): BP systolic 93–134; BP diastolic 52–83
[2018-11-21] MEDS: DIAZEPAM 5 MG TAB PO PRN ×3 (01:22→17:11)
[2018-11-21] MEDS: CALCIUM CARBONATE 500 MG CHEW PO PRN (01:42)
[2018-11-21] MEDS: ceFAZolin(*) 1 GM VIAL 1 GM in NS(*) 0.9% 100 ML ADDVANT BAG 100 ML IVPB SCH ×2 (05:12→12:17)
[2018-11-21] MEDS: APAP/HYDROCODONE 325/7.5 TAB PO PRN ×4 (05:49→20:05)
[2018-11-21] MEDS: CELECOXIB 200 MG CAP PO SCH ×2 (08:12→16:15)
[2018-11-21] MEDS: ASPIRIN 325 MG TAB PO SCH (08:12)
[2018-11-21] MEDS: LISINOPRIL 20 MG TAB PO SCH (08:15)
--- NOTE | 2018-11-21 10:50 | Hospitalist Progress Note ---
Subjective Progress Notes Subjective ANA ovenright, continues work with PT. Physical Exam Vital Signs Date Time Temp Pulse Resp B/P (MAP) Pulse Ox O2 Delivery O2 Flow Rate FiO2 11/21/18 06:56 97.6 69 20 93/53 (66) 95 Nasal Cannula 0.5 Intake and Output 11/21/18 07:00 Intake Total 4400 ml Output Total 50 ml Balance 4350 ml Intake Oral 800 ml IV Total 1900 ml Other 1700 ml Output Estimated Blood Loss 50 ml # Voids 1 # Emeses 1 General Appearance: Alert, Awake, No Acute Distress, Afebrile Neuro: No Gross deficits Cardiovascular: Normal Rhythm & Peripheral Pulses Respiratory: No Respiratory Distress Integumentary: Skin Intact without Lesion / Mass Assessment and Plan Problems: (1) Status post right knee replacement Status: Acute Assessment & Plan: She will be placed on Aspirin for DVT prophylaxis. (2) Hypertension Status: Chronic Assessment & Plan: Continue chronic Lisinopril with hold parameters. Exam Sepsis Risk: No Definite Risk Problem Qualifiers (1) Hypertension: Hypertension type: essential hypertension Qualified Codes: I10 - Essential (primary) hypertension NOVA LUJAN DO November 21, 2018 10:50
--- NOTE | 2018-11-21 13:29 | NUR ---
Physical Therapy Impression Pt is doing okay, though is limited by low BP. Pt's BP in 95/55 in seated at EOB, mild dizziness in standing. Pt completed marching and side stepping at EOB noting some discomfort in the back of her knee as she has "not straightened it in years". Upon return to supine, encouraged pt to rest in bed without CPM as she was reporting hip discomfort while in the machine. Pt has difficulty resting in full extension, discussed importance of not having a pillow behind her knee. Pt verbalized understanding. Encouraged pt to increase fluid intake and get up into chair for lunch this date. Notified nursing. Pt on room air throughout session, SpO2 in mid 90's. Cont. with POC. Physical Therapy Goals Patient's Goals
--- NOTE | 2018-11-21 14:40 | NUR ---
Physical Therapy Impression Patient was agreeable to therapy. Patient was min A with bed mobs and min A with transfers from and to bed and from and to toilet. Patient instructed in gait training with FWW from room to toilet with CGA x 2 for safety. Patient transferred to toilet with min A then ambulated to her chair for a total of ~25 feet. Patient had slow antalgic gait with significant FTL. Physical Therapy Goals Patient's Goals
--- NOTE | 2018-11-21 19:43 | NUR ---
Physical Therapy Impression Pt has already had 2 PT visits to address TKA today, however, pt is experiencing intense discomfort radiating from "hip into entire right leg". Nursing requests assistance for conservative pain management skills and PT eval, as current medication does not seem to be effective. PT evaluated pain source and appears to be related to SI joint pain with piriformis musculature very guarded and tight. Possible nerve pain explanation for radiating pain. PT provided deep tissue massage and manual therapy to relieve spasm in addition to PROM to R) hip supporting R) knee in a moderately flexed but comfortable position for pt, to allow for hip flexion and IR/ER to stretch tightened musculature. Pt notes fairly significant relief thereafter and notes that she may be able to rest. Physical Therapy Goals 1. Pt to be Min/CGA for bed mobility and supine to/from sit trnsfrs 2. Pt to be CGA/SBA for sit to/from stand transfers 3. Pt to ambulate 100' with least restrictive device and safe pattern 4. Pt to complete up/down platform step x 1 with rail and/or least restrictive device. Patient's Goals
[2018-11-22] MEDS: APAP/HYDROCODONE 325/7.5 TAB PO PRN ×4 (00:34→21:53)
[2018-11-22] MEDS: CALCIUM CARBONATE 500 MG CHEW PO PRN (00:34)
--- NOTE | 2018-11-22 00:47 | NUR ---
pt. requesting pillow under surgical leg, pt. instructed and educated on no use off pillow under surgical knee, CPM for elevation advised, pt. declined and requesting pillow,
[2018-11-22 00:49] VITALS: BP 136/84
[2018-11-22] MEDS: DIAZEPAM 5 MG TAB PO PRN ×2 (02:23→21:53)
[2018-11-22 06:56] VITALS: BP 124/62
[2018-11-22] MEDS: ASPIRIN 325 MG TAB PO SCH (08:51)
[2018-11-22] MEDS: LISINOPRIL 20 MG TAB PO SCH (08:51)
[2018-11-22] MEDS: CELECOXIB 200 MG CAP PO SCH ×2 (08:51→17:47)
--- NOTE | 2018-11-22 09:07 | NUR ---
Physical Therapy Impression Patient was min A with bed mob. CGA with STS. CPM 0-35. Patient is very slow with transfers and ambulation. Patient ambulated ~30 feet with CGA and max cuing for posture and weight shift. Patient vomited at end of session after getting back in bed and on CPM. Physical Therapy Goals Patient's Goals
--- NOTE | 2018-11-22 10:58 | Hospitalist Progress Note ---
Subjective Progress Notes Subjective She was admitted s/p knee replacement. She has complaints of pain to the surgical site. She had no acute events overnight. Patient Complains of: Cardiovascular: No: Chest Pain Respiratory: No: Shortness of Breath Physical Exam Vital Signs Date Time Temp Pulse Resp B/P (MAP) Pulse Ox O2 Delivery O2 Flow Rate FiO2 11/22/18 06:56 98.1 71 20 124/62 (82) 92 Room Air 11/21/18 13:47 0.5 Intake and Output 11/22/18 07:00 Intake Total 1160 ml Output Total 300 ml Balance 860 ml Intake Oral 1160 ml Output Emesis 300 ml # Voids 2 General Appearance: Alert, Awake, No Acute Distress, Afebrile Neuro: No Gross deficits Cardiovascular: Regular Rate and Rhythm Respiratory: No Respiratory Distress, Clear to Auscultation Extremities: Warm, Perfused Psych: Alert & Oriented X3, Appropriate Mood & Affect Assessment and Plan Problems: (1) Status post right knee replacement Status: Acute Assessment & Plan: She will be placed on Aspirin for DVT prophylaxis. (2) Hypertension Status: Chronic Assessment & Plan: Continue chronic Lisinopril with hold parameters. Exam Sepsis Risk: No Definite Risk Problem Qualifiers (1) Hypertension: Hypertension type: essential hypertension Qualified Codes: I10 - Essential (primary) hypertension BALDEV CHANDRAP November 22, 2018 10:58
--- NOTE | 2018-11-22 14:14 | NUR ---
Physical Therapy Impression Pt is progressing slowly with PT interventions and is limited by pain and nausea. Pt requires Min A for bed mobility, to move surgical leg out of bed. CGA for sit<> stand transfers with RW, with PT cues to bend R) LE, as the pt primarily keeps the LE in extension with mobility. Pt ambulated 48 ft w/ CGAx2 with a very slowed gait speed, not functional for community nor household mobility. Pt was able to weight shift onto surgical side, but with pain and discomfort throughout. The patient has a full flight of stairs to access home and is currently not safe nor appropriate to attempt stair negotiation. At this time the patient is not safe to d/c home, and it is recommended that she receive further skilled rehab in order to d/c home with necessary level of independence. Physical Therapy Goals Patient's Goals
--- NOTE | 2018-11-22 14:14 | NUR ---
Physical Therapy Impression Min A for bed mobility, to move surgical leg. CGA for sit<> stand transfers. Pt ambulated 48 ft w/ CGAx2. Pt was able to weight shift onto surgical side. Gait was primarily limited due to pain. Pt. would benefit from further skilled PT care to improve functional skills including stair negotiation. Pt was left in reclining chair with all needs met and call light in reach. Physical Therapy Goals Patient's Goals
--- NOTE | 2018-11-22 16:00 | NUR ---
This Physical Therapist or Capture Manager was present for the entire physical therapy session directing the services, making the skilled judgement, and was not engaged in treating another patient or doing another task at the same time as the treatment session. Addendum: 11/22/18 at 1600 by SAURABH CINTRON PT Amended: Links added.
[2018-11-22 16:55] VITALS: BP 117/59
--- NOTE | 2018-11-22 16:57 | NUR ---
Occupational Therapy Impression OT evaluation completed. Pt. would benefit from OT services 5x/ week to increase independence in ADL's. OT recommends pt. d/c to ARU as pt. requires assistance at this time to safely perform ADL's.Pt. is not safe to d/c to home environment as pt. is unable to ascend 8 stairs necessary to access home. Pt. is not safe to return to home due to pt.'s high level of functioned required in order to care for dependent disabled son. Occupational Therapy Goals 1. Pt. to perform dressing activities with Mod I. 2. Pt. to perform showering activities with Mod I. 3. Pt. to perform toileting activities with Mod I. 4. Pt. to perform grooming activities with I. 5. Pt. to perform light meal prep activity with I. Patient's Goal
[2018-11-22 18:44] VITALS: BP 121/64
[2018-11-22] MEDS ORDERED: GABAPENTIN 100 MG CAP PO SCH (21:00)
[2018-11-22 23:40] VITALS: BP 108/43
[2018-11-23 05:20] VITALS: BP 133/78
[2018-11-23] MEDS: APAP/HYDROCODONE 325/7.5 TAB PO PRN ×2 (05:21→10:43)
[2018-11-23] MEDS: DIAZEPAM 5 MG TAB PO PRN ×2 (05:47→13:00)
[2018-11-23 06:52] VITALS: BP 110/41
[2018-11-23] MEDS: CALCIUM CARBONATE 500 MG CHEW PO PRN (08:17)
[2018-11-23] MEDS: LISINOPRIL 20 MG TAB PO SCH (08:17)
[2018-11-23] MEDS: CELECOXIB 200 MG CAP PO SCH (08:17)
[2018-11-23] MEDS: ASPIRIN 325 MG TAB PO SCH (09:09)
[2018-11-23] MEDS ORDERED: HYDR-389 PO (09:15)
[2018-11-23] MEDS ORDERED: FAMOTIDINE 20 MG TAB PO ONE (09:50)
--- NOTE | 2018-11-23 10:30 | NUR ---
Physical Therapy Impression Pt notes that despite recent difficulty, she does intend to d/c home today and declines further in patient rehab options offerred by discharge planners. Pt agreeable to address stairs with this PT in rehab dept prior to departure. Pt utilized straight leg brace for R) LE support to complete up/down stairs with CGA by PT and rail on R) side to ascend. Pt notes improved confidence with her ability and notes that she does feel that she will be able to d/c home without difficulty. Physical Therapy Goals 1. Pt to be Min/CGA for bed mobility and supine to/from sit trnsfrs 2. Pt to be CGA/SBA for sit to/from stand transfers 3. Pt to ambulate 100' with least restrictive device and safe pattern 4. Pt to complete up/down platform step x 1 with rail and/or least restrictive device. Patient's Goals
--- NOTE | 2018-11-23 10:40 | Hospitalist Progress Note ---
Subjective Progress Notes Subjective She was admitted s/p knee replacement. She has no complaints this morning. She would like to go home today. Patient Complains of: Cardiovascular: No: Chest Pain Respiratory: No: Shortness of Breath Physical Exam Vital Signs Date Time Temp Pulse Resp B/P (MAP) Pulse Ox O2 Delivery O2 Flow Rate FiO2 11/23/18 07:54 96 11/23/18 07:54 Room Air 11/23/18 06:52 97.4 72 16 110/41 (64) 11/21/18 13:47 0.5 Intake and Output 11/23/18 07:00 Intake Total 1460 ml Output Total 300 ml Balance 1160 ml Intake Oral 1460 ml Output Emesis 300 ml # Voids 3 # Bowel Movements 1 # Emeses 1 General Appearance: Alert, Awake, No Acute Distress, Afebrile Neuro: No Gross deficits Cardiovascular: Regular Rate and Rhythm Respiratory: No Respiratory Distress, Clear to Auscultation GI: Soft and Non-Tender Extremities: Warm, Perfused; No Edema Psych: Alert & Oriented X3, Appropriate Mood & Affect Assessment and Plan Problems: (1) Status post right knee replacement Status: Acute Assessment & Plan: She will be placed on Aspirin for DVT prophylaxis. (2) Hypertension Status: Chronic Assessment & Plan: Continue chronic Lisinopril with hold parameters. Exam Sepsis Risk: No Definite Risk Problem Qualifiers (1) Hypertension: Hypertension type: essential hypertension Qualified Codes: I10 - Essential (primary) hypertension BALDEV CHANDRAP November 23, 2018 10:40
--- NOTE | 2018-11-23 12:45 | NUR ---
OCCUPATIONAL THERAPY Dressing Assistance: Dressing Aid Required: Bathing Assistance: Bathing Equipment: Not Completed Home Assessment: Non Completed Feeding Assistance: Feeding Specialized Equipment: Toilet Use: CGA Verbalizes Needs: Yes Understands Precautions: Yes Cooperative: Yes Family Teaching: No Occupational Therapy Comment: Pt. has refused d/c to ARU for further rehab. Pt. has decided to d/c to home with care instead.
== END 2018-11-23 13:22 | disposition home or self-care (01) | DRG 470 ==
LOC: OR 00:21 → MED 16:15
PROVIDERS: ADMIT Orthopaedic Surgery; ATTEND Orthopaedic Surgery
PROC: 0SRC0J9 Replacement of Right Knee Joint with Synthetic Substitute, Cemented, Open Approach (ICD-10-PCS; principal; 2018-11-20 12:10)
DX: M17.11 Unilateral primary osteoarthritis, right knee (principal); I10 Essential (primary) hypertension; K21.9 Gastro-esophageal reflux disease without esophagitis; Z90.49 Acquired absence of other specified parts of digestive tract; Z98.84 Bariatric surgery status; E66.9 Obesity, unspecified; Z90.710 Acquired absence of both cervix and uterus; Z96.652 Presence of left artificial knee joint; Z68.39 Body mass index [BMI] 39.0-39.9, adult
CPT/HCPCS: 36415; 85610; 86850; 86900; 86901; 97161; 97165; C1713; C1776; J0690; J1100; J2001; J2250; J2405; J2704; J3010; J3370; J3490; J7050; J7060

== ENCOUNTER 2019-02-12 00:25 | Inpatient (IN) | payer BC ==
--- NOTE | 2019-02-01 16:12 | HISTORY AND PHYSICAL ---
DATE OF ADMISSION: February 12, 2019 IDENTIFICATION AND CHIEF COMPLAINT Jovanna is a 63-year-old woman with the chief complaint of left knee pain and disability. HISTORY OF PRESENT ILLNESS Patient has a long-standing history of knee arthritis, progressively painful and disabling, refractory to conservative care. Surgery is indicated to relieve symptoms after failure of nonoperative measures. PAST MEDICAL HISTORY 1. Minor heart attack 20 years ago. 2. Hypertension, controlled on medication. 3. Generalized arthritis. 4. Acid reflux disease. 5. Borderline diabetes. 6. Migraine headaches. PAST SURGICAL HISTORY 1. Right total knee arthroplasty. 2. Hip replacement. 3. Hysterectomy. 4. Bladder operation. 5. Cholecystectomy. ALLERGIES She has no known drug allergies. She does have an allergy to POLLEN. CURRENT MEDICATIONS 1. Mobic 15 mg a day. 2. Lisinopril 20 mg p.o. q. day. 3. Aspirin 81 mg p.o. q. day. 4. Various vitamins. FAMILY HISTORY Notable for mother with cancer, father with heart disease. SOCIAL HISTORY Negative for tobacco and alcohol use. REVIEW OF SYSTEMS Otherwise unremarkable. PHYSICAL EXAMINATION GENERAL: Well-developed, well-nourished female, appears stated age. HEAD: Normocephalic, atraumatic. NECK: Supple. LUNGS: Clear. HEART: Regular. ABDOMEN: Soft. ORTHOPEDIC: Left knee has a flexion contracture and severe varus deformity. She is stiff at end range. Effusion is present. Extensor flexion is intact. Gross stability is good. IMAGING Radiographs demonstrate severe DJD, most severely affecting the medial compartment with some bone loss on the tibia. ASSESSMENT Left knee end-stage degenerative joint disease, refractory to conservative care. PLAN After reviewing the options, Jovanna would like to go ahead and proceed with total knee arthroplasty. Nature of the procedure, risks, benefits, and anticipated rehab course outlined. Risks of the procedure include, but are not limited to , major medical or anesthetic complication, infection, neurovascular injury, blood transfusion, stiffness, scarring, fracture, tendon rupture, instability, implant migration or failure, persistent or recurrent pain, need for additional surgery, and others unforeseen. She understands and wishes to proceed. Signed permit was placed in the chart. No guarantees were given or implied. JANELLE
[2019-02-11 14:35] LABS: INR 1.02
[~2019-02-12] VITALS: Ht 154.9 cm; Wt 97.1 kg
[2019-02-12] VITALS (15 sets, daily range): BP systolic 90–134; BP diastolic 47–85
[~2019-02-12 00:25] MED LIST changes: +HYDR-389 PO
[2019-02-12] MEDS ORDERED: ROPIVACAINE/EPI/CLONIDINE/KET 50 ML SYRINGE INJ ONE (06:15)
[2019-02-12] MEDS ORDERED: TRANEXAMIC AC 1000 MG/10ML SDV 1,000 MG in DEXTROSE 5% 50 ML BAG 50 ML IV ONE (06:15)
[2019-02-12] MEDS ORDERED: CELECOXIB 200 MG CAP PO ONE (06:15)
[2019-02-12] MEDS ORDERED: NORMOSOL R SOLN(*) 1000 ML BAG 1,000 ML IV PRN ×2 (06:15→09:50)
[2019-02-12] MEDS ORDERED: MIDAZOLAM 2 MG/2 ML VIAL IVP PRN (06:15)
[2019-02-12] MEDS ORDERED: FAMOTIDINE 20 MG TAB PO ONE (06:15)
[2019-02-12] MEDS ORDERED: PREGABALIN 150 MG CAPSULE PO ONE (06:15)
[2019-02-12] MEDS ORDERED: ACETAMINOPHEN 500 MG TAB PO ONE (06:15)
[2019-02-12] MEDS ORDERED: LIDOCAINE/SOD BICARB 8.4% SYR ID ONE (06:15)
[2019-02-12] MEDS ORDERED: ceFAZolin(*) 2GM/D5W 50ML 50 ML IVPB ONE (06:15)
[2019-02-12] MEDS ORDERED: VANCOMYCIN 1 GM VIAL ONE (06:43)
[2019-02-12] MEDS ORDERED: DEXAMETHASONE SOD 4 MG/ML VIAL ONE (06:56)
[2019-02-12] MEDS ORDERED: LIDOCAINE MPF 1% 5 ML VIAL ONE (06:56)
[2019-02-12] MEDS ORDERED: KETAMINE HCL-NS 50 MG/5 ML SYR ONE (06:56)
[2019-02-12] MEDS ORDERED: PROPOFOL EMUL(*) 10MG/ML 20 ML 20 ML ONE (06:56)
[2019-02-12] MEDS ORDERED: ONDANSETRON 4 MG/2 ML VIAL ONE ×2 (06:56→09:02)
[2019-02-12] MEDS ORDERED: fentaNYL CITR 100 MCG/2 ML AMP ONE (06:56)
[2019-02-12] MEDS ORDERED: MAGNESIUM HYDROXIDE* 30ML UDCP PO PRN (09:50)
[2019-02-12] MEDS ORDERED: PROMETHAZINE 25 MG/ML 1 ML AMP IVP PRN (09:50)
[2019-02-12] MEDS ORDERED: diphenhydrAMINE 25 MG CAP PO PRN (09:50)
[2019-02-12] MEDS ORDERED: FLUSH 10 ML SYR IVP PRN (09:50)
[2019-02-12] MEDS ORDERED: ZOLPIDEM TARTRATE 5 MG TAB PO PRN (09:50)
[2019-02-12] MEDS ORDERED: BISACODYL 10 MG SUPP PR PRN (09:50)
[2019-02-12] MEDS ORDERED: ACETAMINOPHEN 325 MG TAB PO PRN (09:50)
[2019-02-12] MEDS ORDERED: diphenhydrAMINE 50 MG/ML VIAL IVP PRN (09:50)
[2019-02-12] MEDS ORDERED: BENZOCAINE/MENTHOL 1 EACH LOZG PO PRN (09:50)
--- NOTE | 2019-02-12 10:15 | OPERATIVE REPORT 1 ---
EVENT DATE: February 12, 2019 SURGEON: Matt Littlejohn MD ANESTHESIOLOGIST: Home Howell MD ANESTHESIA: General plus spinal. CHURN DRILLER HELPER: LUIS Valero PREOPERATIVE DIAGNOSIS Left knee degenerative joint disease. POSTOPERATIVE DIAGNOSIS Left knee degenerative joint disease. PROCEDURE PERFORMED Left total knee arthroplasty. ESTIMATED BLOOD LOSS Minimal. DRAINS None. SPECIMENS None. COMPLICATIONS None apparent. IMPLANTS USED Tonny Triathlon knee system with a 4 left PS femur, 5 standard tibial baseplate, 33 mm universal symmetric all polyethylene patellar button and a 19 mm PS tibial tray liner. Polyethylene X3. INDICATIONS Jovanna is a 63-year-old woman with intractable pain and disability related to end-stage knee arthritis. Surgery is indicated to relieve symptoms after failure of nonoperative measures. DESCRIPTION OF PROCEDURE The patient was taken to the operating room, placed supine on the operating table. Spinal block was administered by the anesthesiologist. General anesthesia was induced. Antibiotics and TXA are administered IV. The left lower extremity was prepped and draped in the usual sterile fashion for knee arthroplasty. The limb was exsanguinated with Esmarch bandage. The tourniquet was inflated to 275 mmHg. A midline longitudinal incision was made and carried down through the skin and subcutaneous tissue to the extensor mechanism. Full- thickness flaps were developed far enough medially to allow medial parapatellar arthrotomy to be performed. The patella was everted. The knee was brought into a flexed position. The fat pad, anterior horns of the menisci and PCL resected. The ACL was absent. The subperiosteal medial release was started off the tibia to start to balance the knee in a titrated fashion and large prominent interfering osteophytes were resected. A step drill was used to enter the distal femur. A 10-inch long alignment guide was used to engage the isthmus. Cut was set for 6 degrees of valgus relative to the anatomic axis. A 10 mm resection block was applied and pinned. Cuts made with an oscillating saw. The AP sizing guide was applied. The distal femoral cut was positioned for 3 degrees of external rotation relative to the posterior condyles. A size 4 was optimal without risk of notching. The four-in-one cutting block was applied. Anterior, posterior, posterior chamfer and anterior chamfer cuts were made respectively. A PS block was applied and centered medial and lateral. Bone was removed from the box. The trial femur has [id number] fit. Attention was turned to tibial preparation. The extramedullary guide was applied and positioned for varus, valgus, posterior slope and rotation. Both sides were severely worn. A angle-wing is used to estimate appropriate cut to take minimal additional medial bone where the erosion is most severe, just basically having the saw tough the lower portion of the defect. It does not appear that an augment will be required. Bone loss is not as severe as it was on her contralateral knee. The block was pinned. Extramedullary alignment check was made and the cut was made with an oscillating saw. Posterior osteophytes were resected along with additional meniscal remnants and a bit of additional medial release is performed taking care to protect the integrity of the MCL. At this point, the 5 baseplate provides optimal bony coverage without soft tissue overhand and this was inserted along with a trial liner and trial femur. The knee was brought into extension. The patella was taken from a starting thickness of 23 mm to a residual of 14 with a patellar clamp and an oscillating saw. The 33 provides optimal bony coverage without soft tissue overhang. Lug holes were drilled. The patella tracts nicely with a no-touch technique. Final tibial preparation consisted of ensuring appropriate rotational and translational position of the component. The box was reamed and the fin was punched. Surfaces were lavaged. Sclerotic bone medially is perforated with a small drill bit to facilitate cement interdigitation. A mix of methylmethacrylate was made and the components were cemented in a single stage. Once the cement was fully polymerized, the tourniquet was deflated and hemostasis was assured. The wounds were copiously lavaged to remove all loose debris. Trial liners of various thicknesses were tried and the 19 filles up the gap ideally allowing the knee to drop to full extension without hyperextension, providing optimal soft tissue tension and stability. The tray was lavaged and dried and the actual liner was locked into the baseplate. Joint was reduced. The arthrotomy was closed in flexion with #2 Ethibond, subcutaneous tissue with 3-0 Vicryl and the skin with a ZipLine closure. Xeroform was applied followed by a dry, sterile dressing and a compression wrap. The patient was awakened from the anesthesia and taken to the recovery room in stable condition, having tolerated the procedure well. Plan is for standard TKA rehab protocol. [facility]
[2019-02-12] MEDS: APAP/HYDROCODONE 325/7.5 TAB PO PRN ×3 (11:01→21:00)
--- NOTE | 2019-02-12 11:21 | RADIOLOGY IMAGING REPORT ---
FACILITY: [facility] PATIENT NAME: Jovanna Braxton : 1955 MR: [id number] V: [id number] EXAM DATE: ORDERING PHYSICIAN: BARYDON WALKER TECHNOLOGIST: Location: [facility] - [place] Patient: Jovanna Braxton : 1955 Visit/Account:[id number] Date of Sevice: 02/12/2019 Exam type: KNEE LIMITED LEFT History: POST OP LEFT TKA Comparison: None. Findings: Two views of the left knee demonstrate a left knee arthroplasty in good anatomic alignment. Soft tis nica gas projects over the anterior aspect of this postoperative knee IMPRESSION: 1. As above Report Dictated By: Gabi Olvera MD at 02/12/2019 11:12 AM Report E-Signed By: Gabi Olvera MD at 02/12/2019 11:12 AM WSN:[id number]
[2019-02-12] MEDS ORDERED: CALCIUM CARBONATE 500 MG CHEW PO PRN (12:40)
--- NOTE | 2019-02-12 13:00 | Hospitalist Consultation ---
History of Present Illness Requesting Physician Dr. Littlejohn Reason for Consult Anticoagulation and management for chronic conditions. Chief Complaint Left Knee Replacement. History of Present Illness 63y/o female here for Left Knee Replacement by Dr. Littlejohn. Her history is positive for Hypertension, Gastric Bypass, GERD, Diet controlled Diabetes, and Smoking. She reports that she was told she has had an OR in the past that was found on an EKG. When repeated, this was not reproducible on EKG, and she has never been treated. History Problems: (1) Hypertension Status: Chronic (2) GERD (gastroesophageal reflux disease) (3) History of gastric bypass Home Meds Reported Medications Acetaminophen/Hydrocodone (HYDROCODON-ACETAMINOPHN 10-325) 1 Each Tab, 1 EACH PO Q4H PRN for PAIN, TAB 11/20/18 Meloxicam (MELOXICAM) 15 Mg Tablet, 15 MG PO QDAY 11/15/18 Lisinopril (LISINOPRIL) 20 Mg Tablet, 20 MG PO QDAY, TAB Hold for two days then resume. If you feel dizzy, please stop medication and notify your primary care provider. 01/10/18 Discontinued Reported Medications Acetaminophen/Hydrocodone (HYDROCODON-ACETAMINOPH 7.5-325) 1 Each Ea, 1-2 EACH PO Q4-6H PRN for PAIN, #42 EA 11/23/18 Allergies: Coded Allergies: adhesive tape (Verified Allergy, Intermediate, CAUSES BLISTERS ON SKIN, 01/10/18) Uncoded Allergies: POLLEN (Allergy, Intermediate, ITCHY EYES, STUFFY NOSE, 11/15/18) Patient History: FH: OR (myocardial infarction) FATHER, FH: heart disease FATHER, Renal cancer MOTHER, Hx Smoking: Yes (2 PPD X 9 YRS QUIT 40 YRS AGO) Smoking Status: Former Smoker Caffeine Intake: Soda Caffeine/Cups Per Day: 1 GLASS RARELY Hx Alcohol Use: No Hx Substance Use Disorder: No Social Drug Use: Never Review of Systems All Systems Reviewed/Normal: Yes, Except as Noted Musculoskeletal: Impaired Mobility (Surgery related) Exam Vital Signs Vital Signs Date Time Temp Pulse Resp B/P (MAP) Pulse Ox O2 Delivery O2 Flow Rate FiO2 02/12/19 11:00 88 111/65 (80) Room Air 02/12/19 10:58 93 02/12/19 10:35 20 02/12/19 10:35 97.6 1.0 General Appearance: Alert, Awake, No Acute Distress Neuro: No Gross deficits Cardiovascular: Regular Rate and Rhythm Respiratory: No Respiratory Distress, Clear to Auscultation GI: Abd Soft and Non-Tender Psych: Alert & Oriented X3, Appropriate Mood & Affect Assessment and Plan Problems: (1) Status post left knee replacement Assessment & Plan: Surgical replacement by Dr. Littlejohn on 02/12. No reported surgical issues or complications reported. She will be on Aspirin for an ticoagulation. PT/OT is following. Pain management per Ortho. (2) Hypertension Status: Chronic Assessment & Plan: Chronic management with Lisinopril will be continued with hold parameters. (3) GERD (gastroesophageal reflux disease) Assessment & Plan: Secondary to Gastric Bypass. She states she has taken Nexium in the past, with poor results; she manages with Tums at this point. Will continue Tums. (4) Diet-controlled diabetes mellitus Assessment & Plan: Has been treated prior to her Gastric Bypass, but has not required any treatment since. (5) History of gastric bypass Venous Thromboembolism Antithrombotics Is Pt On Any Antithrombotics?: No MANNY CARR Feb 12, 2019 13:00
--- NOTE | 2019-02-12 15:50 | NUR ---
Physical Therapy Impression PT eval completed followed by trnsfr trng and ambulation to/from BR with FWW and CGA/SBA. Pt required Min assist for bed mobility and supine to/from sit, as well as Min/CGA for sit to/from stand transfers. Following mobility, pt reviewed use of CPM for self progression of flexion as tolerated and was fit for unit. Physical Therapy Goals 1. Pt to be SBA/Mod indep for bed mobility and supine to/from sit transfers 2. Pt to be SBA/Mod indep for sit to/from stand transfers 3. Pt to be SBA/Mod indep for ambulation x 100' with least restrictive device. 4. Pt to kristin up/down 4 steps with rail and SBA/Mod indep Patient's Goals
[2019-02-12] MEDS: CEFAZOLIN IVP SCH (16:02)
[2019-02-12] MEDS: WATER STERILE IVP SCH (16:02)
[2019-02-12] MEDS: CELECOXIB 200 MG CAP PO SCH (16:32)
[2019-02-13 00:09] VITALS: BP 99/54
[2019-02-13] MEDS ORDERED: NS(*) 0.9% 500 ML BAG 500 ML ONE (00:10)
[2019-02-13] MEDS: CEFAZOLIN IVP SCH ×2 (00:19→07:19)
[2019-02-13] MEDS: WATER STERILE IVP SCH ×2 (00:19→07:19)
[2019-02-13] MEDS: DIAZEPAM 5 MG TAB PO PRN ×3 (00:28→21:36)
[2019-02-13] MEDS: APAP/HYDROCODONE 325/7.5 TAB PO PRN ×6 (00:59→23:47)
[2019-02-13 03:46] VITALS: BP 106/58
[2019-02-13 07:02] VITALS: BP 91/52
[2019-02-13] MEDS: CELECOXIB 200 MG CAP PO SCH ×2 (07:19→17:44)
[2019-02-13] MEDS ORDERED: ASPI-757 PO (08:39)
[2019-02-13] MEDS: LISINOPRIL 20 MG TAB PO SCH ×2 (09:00→09:56)
[2019-02-13] MEDS: ASPIRIN 325 MG TAB PO SCH (09:54)
--- NOTE | 2019-02-13 11:38 | Hospitalist Progress Note ---
Subjective Progress Notes Subjective She was admitted s/p knee replacement. She has complaints of nausea this morning, likely related to pain medications per pt. Patient Complains of: Cardiovascular: No: Chest Pain Respiratory: No: Shortness of Breath Gastrointestinal: Nausea; No Vomiting Physical Exam Vital Signs Date Time Temp Pulse Resp B/P (MAP) Pulse Ox O2 Delivery O2 Flow Rate FiO2 02/13/19 07:23 95 Nasal Cannula 1.0 02/13/19 07:02 97.6 73 17 91/52 (65) Intake and Output 02/13/19 01:04 Intake Total 2790 ml Output Total 400 ml Balance 2390 ml Intake Oral 1140 ml IV Total 1650 ml Output Emesis 400 ml # Voids 1 # Emeses 1 General Appearance: Alert, Awake, No Acute Distress, Afebrile Neuro: No Gross deficits Cardiovascular: Regular Rate and Rhythm Respiratory: No Respiratory Distress, Clear to Auscultation Psych: Alert & Oriented X3, Appropriate Mood & Affect Assessment and Plan Problems: (1) Status post left knee replacement Assessment & Plan: Surgical replacement by Dr. Littlejohn on 02/12. No reported surgical issues or complications reported. She will be on Aspirin for anticoagulation. PT/OT is following. Pain management per Ortho. (2) Hypertension Status: Chronic Assessment & Plan: Chronic management with Lisinopril will be continued with hold parameters. (3) GERD (gastroesophageal reflux disease) Assessment & Plan: Secondary to Gastric Bypass. She states she has taken Nexium in the past, with poor results; she manages with Tums at this point. Will continue Tums. (4) Diet-controlled diabetes mellitus Assessment & Plan: Has been treated prior to her Gastric Bypass, but has not required any treatment since. (5) History of gastric bypass Exam Sepsis Risk: No Definite Risk BALDEV CHANDRA SLOT MACHINE REPAIRER Feb 13, 2019 11:38
--- NOTE | 2019-02-13 11:46 | NUR ---
Physical Therapy Impression Pt notes feeling very drowsy, but feels this is related to recent medication for nausea and possibly valium, which she previously only took at night with prior R) TKA. Pt requires use of leg calciminer for L) LE mobility to edge of bed and to prevent increased discomfort while advancing leg down to floor. Pt is CGA/SBA for sit to/from stand transfers and will need to be primarily Modified indep before d/c home. Pt will also require the ability to complete stairs in order to access her home adequately. Pt does anticipate [facility] services upon return home. Plan to address platform step and more functional distance ambulation this afternoon, with stairs in sequence prior to possible d/c home tomorrow am if medically appropriate. Physical Therapy Goals 1. Pt to be SBA/Mod indep for bed mobility and supine to/from sit transfers 2. Pt to be SBA/Mod indep for sit to/from stand transfers 3. Pt to be SBA/Mod indep for ambulation x 100' with least restrictive device. 4. Pt to kristin up/down 4 steps with rail and SBA/Mod indep Patient's Goals
[2019-02-13 12:53] VITALS: BP 115/54
[2019-02-13 13:01] VITALS: Ht 154.9 cm; Wt 97.1 kg
--- NOTE | 2019-02-13 15:54 | NUR ---
Physical Therapy Impression Pt agreeable with some encouragement, to participate in addressing platform step in hallway. Pt notes apprehension with this skill as her previous R) TKA will now have to advance her up step and pt is unsure of her current ability. PT demonstrated various techniques to advance up/down stairs to protect previous R) TKA and optimize it's strength. Pt is unsure of completing steps in a sideways fashion as she experienced a twisting sensation when she addressed it in this manner with out pt PT previously. Pt did indicate agreement with attempting to descend stairs backwards and is agreeable to addressing them in rehab dept tomorrow with this technique. Physical Therapy Goals 1. Pt to be SBA/Mod indep for bed mobility and supine to/from sit transfers 2. Pt to be SBA/Mod indep for sit to/from stand transfers 3. Pt to be SBA/Mod indep for ambulation x 100' with least restrictive device. 4. Pt to kristin up/down 4 steps with rail and SBA/Mod indep Patient's Goals
[2019-02-13 19:06] VITALS: BP 107/55
[2019-02-13 23:35] VITALS: BP 106/68
[2019-02-14] MEDS: APAP/HYDROCODONE 325/7.5 TAB PO PRN (06:04)
[2019-02-14 07:05] VITALS: BP 105/64
[2019-02-14] MEDS: LISINOPRIL 20 MG TAB PO SCH (08:37)
[2019-02-14] MEDS: CELECOXIB 200 MG CAP PO SCH (08:37)
[2019-02-14] MEDS: ASPIRIN 325 MG TAB PO SCH (08:37)
[2019-02-14] MEDS ORDERED: SCOPOLAMINE 1.5 MG PATCH TD PRN (09:00)
--- NOTE | 2019-02-14 10:58 | NUR ---
Physical Therapy Impression Pt has met all PT goals and is ready for d/c from a mobility stand point. Pt notes that she does feel more secure ascending and descending in forward facing manner and plans to use her small base quad cane at home. Pt on room air throughout session and tolerating this well without SOB. Physical Therapy Goals 1. Pt to be SBA/Mod indep for bed mobility and supine to/from sit transfers 2. Pt to be SBA/Mod indep for sit to/from stand transfers 3. Pt to be SBA/Mod indep for ambulation x 100' with least restrictive device. 4. Pt to kristin up/down 4 steps with rail and SBA/Mod indep Patient's Goals
--- NOTE | 2019-02-14 11:09 | Hospitalist Progress Note ---
Subjective Progress Notes Subjective No acute events overnight. She has vomited twice since surgery, but states she has had issues with pain medications upsetting her stomach in the past. Patient Complains of: Neurological: No: Confusion, Weakness Cardiovascular: No: Chest Pain, Palpitations Respiratory: No: Congestion, Shortness of Breath Gastrointestinal: Nausea, Vomiting Musculoskeletal: No: Pain Physical Exam Vital Signs Date Time Temp Pulse Resp B/P (MAP) Pulse Ox O2 Delivery O2 Flow Rate FiO2 02/14/19 07:05 98.1 77 20 105/64 (78) 95 Blow-by 02/13/19 19:45 1.0 Intake and Output 02/14/19 07:04 Intake Total 540 ml Balance 540 ml Intake Oral 480 ml IV Total 60 ml # Voids 3 General Appearance: Alert, No Acute Distress Neuro: No Gross deficits Cardiovascular: Regular Rate and Rhythm Respiratory: No Respiratory Distress GI: Soft and Non-Tender Psych: Alert & Oriented X3, Appropriate Mood & Affect Assessment and Plan Problems: (1) Status post left knee replacement Assessment & Plan: Surgical replacement by Dr. Walker on 02/12. No reported surgical issues or complications reported. She will be on Aspirin for anticoagulation. PT/OT is following. Pain management per Ortho. (2) Hypertension Status: Chronic Assessment & Plan: Chronic management with Lisinopril will be continued with hold parameters. (3) GERD (gastroesophageal reflux disease) Assessment & Plan: Secondary to Gastric Bypass. She states she has taken Nexium in the past, with poor results; she manages with Tums at this point. Will continue Tums. (4) Diet-controlled diabetes mellitus Assessment & Plan: Has been treated prior to her Gastric Bypass, but has not required any treatment since. (5) Post-operative nausea and vomiting Assessment & Plan: She reports that she has had issues with pain medications upsetting her stomach in the past. Dr. Walker has started her on a Scopolamine patch. Will continue to monitor. (6) History of gastric bypass Copies to: BRAYDON WALKER MD ; Exam Sepsis Risk: No Definite Risk MANNY CARR Feb 14, 2019 11:09
--- NOTE | 2019-02-14 11:11 | NUR ---
PHYSICAL THERAPY INFORMATION TRANSFER SHEET BED MOBILITY: Modified I/ AE TRANSFERS: Modified I/ AE GAIT: 100 ' with RW and Modified I/ AE Weightbearing Status: Weight bearing as kristin STAIRS: 4 with B) rails and SBA/Mod indep. EXERCISES: hand out provided Verbalizes Needs: Yes Understands Directions Yes Cooperative: Yes Family Teaching: Yes Physical Therapy Comment: Pt would benefit from [facility] PT to address ROM and strengthening for L) TKA.
[2019-02-14] MEDS ORDERED: HYDR-654 PO (11:13)
[2019-02-17] MEDS ORDERED: PATCH REMOVAL 1 EA TP PRN (09:00)
== END 2019-02-14 12:10 | disposition home health service (06) | DRG 470 ==
LOC: OR 00:25 → MED 10:35
PROVIDERS: ADMIT Orthopaedic Surgery; ATTEND Orthopaedic Surgery
PROC: 0SRD0J9 Replacement of Left Knee Joint with Synthetic Substitute, Cemented, Open Approach (ICD-10-PCS; principal; 2019-02-12 07:15)
DX: M17.12 Unilateral primary osteoarthritis, left knee (principal); I10 Essential (primary) hypertension; K21.9 Gastro-esophageal reflux disease without esophagitis; E11.9 Type 2 diabetes mellitus without complications; F17.210 Nicotine dependence, cigarettes, uncomplicated; R11.2 Nausea with vomiting, unspecified; T81.89XA Other complications of procedures, not elsewhere classified, initial encounter; Z98.84 Bariatric surgery status; Z96.649 Presence of unspecified artificial hip joint; Z96.651 Presence of right artificial knee joint
CPT/HCPCS: 36415; 85610; 86850; 86900; 86901; 97161; A4216; C1713; C1776; J0690; J1100; J2001; J2250; J2405; J2550; J2704; J3010; J3370; J3490; J7040; J7060